=== PATIENT | female | born 1985 | race Caucasian/White ===

== ENCOUNTER 2017-08-19 20:05 | Emergency (ER) | payer BC ==
[2017-08-19 21:29] VITALS: BP 134/92
--- NOTE | 2017-08-19 21:32 | UC ---
Neck Pain HPI - HPI Summary HPI Summary: 31 y/o female presents to the urgent care c/o neck pain for the past 10 days. Pain is spasmodic, radiating to the LF shoulder and left arm. Pains is 8/10 w/ some tingling and numbness in the left arm at times. She has been taking ibuprofen, using ice, heat and muscle creams to alleviate symptoms. She doesn' t recall any injury.Pt denies fever, SOB, chest pain, BURGOS, abdominal pain, N/V/D - History of Current Complaint Chief Complaint: UCBackPain Stated Complaint: NECK PAIN Hx Obtained From: Patient Hx Last Menstrual Period: due this weekend, on control ?: No Onset/Duration Of Injury/Symptoms: Days - 10 days Timing: Constant Onset/Duration: Gradual Onset, Lasting Days, Still Present, Worse Since - yesterday Severity: Severe Pain Intensity: 8 Pain Scale Used: 0-10 Numeric Location: Discrete At: - left side of neck Character: Stiff, Spasmotic Aggravating Factors: Movement Alleviating Factors: Heat, OTC Meds Associated Signs & Symptoms: Positive: Nuchal Rigity. Negative: Swelling, Redness, Fever, Headache - Risk Factors Meningitis Risk Factors: Negative - Allergies/Home Medications Allergies/Adverse Reactions: Allergies Allergy/AdvReac Type Severity Reaction Status Date / Time Cefaclor [From [facility]] Allergy Hives Verified 08/19/17 21:29 Home Medications: Home Medications ALPRAZolam TAB* [Xanax TAB*] 0.25 mg PO Q6H PRN 08/19/17 [History Confirmed 06/26] Control 1 tab PO DAILY 08/19/17 [History Confirmed 08/19/17] Propranolol TAB* [Inderal TAB*] 10 mg PO DAILY 08/19/17 [History Confirmed 08/19] Venlafaxine EXT RELEASE CAP* [Effexor Xr CAP*] 37.5 - 75 mg PO DAILY 08/19/17 [ History Confirmed 08/19/17] PMH/Surg Hx/FS Hx/Imm Hx Previously Healthy: Yes Neurological History: Migraine Psychological History: Anxiety - Surgical History Surgical History: Yes Surgery Procedure, Year, and Place: breast reduction 2007 - Family History Known Family History: Positive: Diabetes - Social History Occupation: Employed Full-time Lives: With Family Alcohol Use: None Substance Use Type: None, Synthetic Drugs Smoking Status (MU): Heavy Every Day Tobacco Smoker Review Of Systems Constitutional: Positive: Negative Skin: Positive: Negative Eyes: Positive: Negative ENT: Positive: Negative Respiratory: Positive: Negative Cardiovascular: Positive: Negative Gastrointestinal: Positive: Negative Genitourinary: Positive: Negative Musculoskeletal: Positive: Other: - left side neck pain Neurological: Positive: Numbness - left side arm Psychological: Positive: Negative All Other Systems Reviewed And Are Negative: Yes Physical Exam Triage Information Reviewed: Yes Vital Signs: Initial Vital Signs Temp 97.9 F 08/19/17 21:23 Pulse 77 08/19/17 21:23 Resp 14 08/19/17 21:23 BP 134/92 08/19/17 21:23 - Additional Comments VITAL SIGNS: Reviewed. GENERAL: Patient is a well developed and nourished who is sitting comfortable in the examining table. Patient is not in any acute respiratory distress. HEAD AND FACE: No signs of trauma. No ecchymosis, hematomas or skull depressions. No sinus tenderness. edematous erythematous nasal mucosa with yellowish discharge, EYES: PERRLA, EOMI x 2, No injected conjunctiva, clear watery eyes, no nystagmus. No photophobia. EARS: Hearing grossly intact. Ear canals and tympanic membranes are within normal limits. MOUTH: Positive pharynx with erythema, no exudates,no palatal petechiae. no B/ L tonsillar enlargement Uvula in midline. NECK: no surface trauma, open wounds, soft tissue, or muscle tenderness; trachea midline, NT over larynx. No subcutaneous emphysema or crepitus. No bony tenderness, step-off or deformity to firm palpation at posterior midline. FROM limited due to pain; left side of neck with tenderness and muscle spasm. Decrease ROM of the left shoulder due to pain. No meningeal signs, no Kernig's or brudzinskis signs. CHEST: Symmetric, no tenderness at palpation LUNGS: Clear to auscultation bilaterally. No wheezing or crackles. CVS: Regular rate and rhythm, S1 and S2 present, no murmurs or gallops appreciated. ABDOMEN: Soft, non-tender. No signs of distention. No rebound no guarding, and no masses palpated. Bowel sounds are normal. EXTREMITIES: FROM in all major joints, no edema, no cyanosis or clubbing. NEURO: Alert and oriented x 3. No acute neurological deficits. Speech is normal and follows commands. SKIN: Dry and warm Neck Pain Course/Dx - Course Course Of Treatment: 31 y/o female presents to the urgent care c/o neck pain for the past 10 days. Pain is spasmodic, radiating to the LF shoulder and left arm. Pains is 8/10 w/ some tingling and numbness in the left arm at times. She has been taking ibuprofen, using ice, heat and muscle creams to alleviate symptoms. She doesn't recall any injury.Pt denies fever, SOB, chest pain, BURGOS, abdominal pain, N/V/D. Hx obtained. Left side of neck with muscle spasm on examination. Pt given Toradol IM inj and Prednisone PO to alleviate symptoms. Pt tolerated well medications and pain decrease. Pt Rx Naproxen PO, Prednisone taper dose PO, Robaxin PO abd advised if not improvment of symptoms to f/u with Orthopedic Dr Henao in 1 weak for further management. Pt's BP is elevated today advised to decrease salt in diet, monitor BP and f/u with PCP for further management. Pt understood and agreed w/ plan of care. - Differential Dx/Diagnosis Differential Dx/HQI/PQRI: Cervical Fracture, Sprain, Strain, Torticollis Provider Diagnoses: 1- Spasmodic Torticollis. 2-Acute neck pain Discharge - Discharge Plan Condition: Stable Disposition: HOME Prescriptions: Methocarbamol TAB* [Robaxin 500 MG TAB*] 1,000 mg PO Q6H PRN #12 tab PRN Reason: Spasms - Neck Naproxen [Naproxen 500 mg] 500 mg PO Q8H PRN #30 tab PRN Reason: Pain predniSONE TAB* [Deltasone TAB*] 20 mg PO DAILY #8 tab Patient Education Materials: Spasmodic Torticollis (ED), Low Sodium Diet (ED), Acute Neck Pain (ED) Referrals: Luis Victor MD [Primary Care Provider] - 3 Days Luis Henao MD [Medical Doctor] - 3 Days Additional Instructions: 1-Please take Naproxen PO after meals as directed to alleviate pain and swelling. 2- Take Prednisone PO as directed to alleviate symptoms as directed 3- Take Robaxin PO as directed to alleviate muscle spasm 4- Please f/u with Orthopedic DR Henao in 3 days if not improvement improvement of symptoms for further evaluation and treatment. 5-Your BP is elevated today. please decrease salt in your diet, monitor BP and if it continues to be elevated please f/u with your PCP for further management
[2017-08-19] MEDS ORDERED: Ketorolac INJ* 60 MG/2 ML VIAL IM ONE (21:43)
[2017-08-19] MEDS ORDERED: predniSONE TAB* 20 MG PO ONE (21:44)
== END 2017-08-19 22:24 | disposition home or self-care (01) ==
LOC: UCCORT 20:05
DX: G24.3 Spasmodic torticollis (principal); M54.2 Cervicalgia; G43.909 Migraine, unspecified, not intractable, without status migrainosus; F41.9 Anxiety disorder, unspecified; Z88.1 Allergy status to other antibiotic agents; F17.210 Nicotine dependence, cigarettes, uncomplicated
CPT/HCPCS: 96372; 99202; G0463; J1885; J7512

== ENCOUNTER 2017-10-21 13:43 | Emergency (ER) | payer BC ==
--- NOTE | 2017-10-21 14:34 | UC ---
UC Dental HPI - HPI Summary HPI Summary: dental pain x 3 days left lower back , tooth was broken few months ago , no it is becoming painful no fever - History of Current Complaint Chief Complaint: UCDentalProblem Stated Complaint: DENTAL PAIN Time Seen by Provider: 10/21/17 14:12 Hx Obtained From: Patient Hx Last Menstrual Period: 10/18/17 Onset/Duration: Gradual Onset, Lasting Days - 3, Still Present Severity: Severe Pain Intensity: 6 Pain Scale Used: 0-10 Numeric Aggravating Factor(s): Heat, Cold, Chewing Alleviating Factor(s): Nothing Dental: 1 - pain - Allergies/Home Medications Allergies/Adverse Reactions: Allergies Allergy/AdvReac Type Severity Reaction Status Date / Time cefaclor [From [facility]] Allergy Unknown Hives Verified 10/21/17 14:05 Home Medications: Home Medications Ibuprofen TAB* [Advil TAB*] 600 mg PO Q6H PRN 10/21/17 [History Confirmed ] Norgestimate-Ethinyl Estradiol [Ortho-Cyclen 28 Tablet] 1 each PO DAILY [History Confirmed 10/21/17] PMH/Surg Hx/FS Hx/Imm Hx Previously Healthy: Yes - Surgical History Surgical History: Yes Surgery Procedure, Year, and Place: breast reduction 2007 - Family History Known Family History: Positive: Diabetes - Social History Alcohol Use: Rare Substance Use Type: Prescribed Smoking Status (MU): Heavy Every Day Tobacco Smoker Amount Used/How Often: 1/2 PPD Household Exposure Type: Cigarettes Review of Systems Constitutional: Negative Skin: Negative Eyes: Negative ENT: Dental Pain Respiratory: Negative Cardiovascular: Negative Is Patient Immunocompromised?: No All Other Systems Reviewed And Are Negative: Yes Physical Exam Triage Information Reviewed: Yes Appearance: Well-Appearing, No Pain Distress, Well-Nourished Vital Signs: Initial Vital Signs Temp 96.9 F 10/21/17 14:07 Pulse 103 10/21/17 14:07 Resp 18 10/21/17 14:07 BP 137/78 10/21/17 14:07 Pulse Ox 99 10/21/17 14:07 Vital Signs Reviewed: Yes Eyes: Positive: Conjunctiva Clear ENT: Positive: Normal ENT inspection, Hearing grossly normal, Pharynx normal Dental: Positive: Gross Decay/Caries @ - #19. Negative: Abscess @ Neck: Positive: Supple, Nontender, No Lymphadenopathy Respiratory: Positive: Chest non-tender, Lungs clear, Normal breath sounds Cardiovascular: Positive: RRR, No Murmur, Pulses Normal Skin Exam: Normal Dental Complaint Course/Dx - Differential Dx/Diagnosis Provider Diagnoses: dental pain Discharge - Discharge Plan Condition: Stable Disposition: HOME Prescriptions: Acetaminop/Codeine 30 MG TAB* [Tylenol/Codeine 30 MG TAB*] 1 - 2 tab PO Q6H PRN #20 tab MDD 8 PRN Reason: Pain Clindamycin Cap(NF) [Clindamycin Cap 300 mg Cap(NF)] 300 mg PO TID #30 cap Patient Education Materials: Toothache (ED) Referrals: Luis Victor MD [Primary Care Provider] - Additional Instructions: follow up with a dentist reny
[2017-10-21 15:07] VITALS: BP 137/78
== END 2017-10-21 14:31 | disposition home or self-care (01) ==
LOC: UCCORT 13:43
DX: S02.5XXA Fracture of tooth (traumatic), initial encounter for closed fracture (principal); X58.XXXA Exposure to other specified factors, initial encounter; Y93.9 Activity, unspecified; Y92.9 Unspecified place or not applicable
CPT/HCPCS: 99212; G0463

== ENCOUNTER 2019-06-10 08:10 | Inpatient (IN) | payer BC ==
--- NOTE | 2019-06-10 08:52 | HP ---
General Information - Reason for Visit 33yo, @37+4, here for an IOL for GHTN - General Information Maternal Age: 33 Grav: 1 Para: 0 SAB: 0 IEA: 0 Estimated Due Date: 06/27/19 Determined By: LMP Gestational Age in Weeks/Days: 37+4 Maternal Blood Type and Rh: AB Positive - Results this Serology/RPR Result: Non-Reactive Rubella Result: Immune HBsAg Result: Negative HIV Result: Negative GBS Culture Result: Negative Past Medical History Past Medical History Comment: Depression/anxiety migraine back pain tachycardia Past Surgical History Comment: breast reduction colposcopy Family History Comment: Father: depression/anxiety Mother: diabetes Brother 1: [employer] PGM: d/t lupus[place] PGF: [place] MGM[place] MGF: prostate cancer[place] - Antepartal Records Antepartal Records: Reviewed, Complicated by: - anxiety, tachycard Review of Systems CV Complaint: No Respiratory: Shortness of Breath: No Gastrointestinal: No Nausea/Vomiting, Normal Bowel Movement Genitourinary: No Dysuria, No Bleeding, No Leaking Fluid Musculoskeletal: No Complaint, No Epigastric Pain Neurological: No Headache, No Visual Changes Movement: Normal Exam Allergies/Adverse Reactions: Allergies cefaclor [From Ceclor] Allergy (Unknown, Verified 06/10/19 08:35) Hives temp 97.4, HR 82, RR 18, BP 130/79, O2 100% - Measurements Height: 5 ft 3 in Weight: 245 lb Weight in lbs: [id number] Body Mass Index (BMI): 43.4 Pre- Weight: 205 lb Weight Gained This : 40 lbs and 0 ozs - Exam Breast: Breast Exam Deferred CVA: No CVA Tenderness Extremities: No Edema Heart: Normal Rhythm/Heart Sounds HEENT: No Significant Findings Lungs: Clear Bilaterally Rectal: Rectal Exam Deferred Thyroid: No Thyromegaly - Abdominal Exam Abdomen Exam: Non-Tender, Fundal Height Consistent with Dates - Ultrasound/Biophysical Profile Ultrasound Status: Not Done Targeted Exam Findings Estimated Weight: 8lb Cervical Exam: Fingertip - check by Nikki Saleh CNM on 06/09 in office Effacement: Thick Station: -2 Presenting Part: Vertex Membrane Status: Intact EFM Findings - External Monitor Findings Baseline Heart Rate: 140 External Monitor Findings: Accelerations Present, No Pattern of Variable or Late Decelerations, Variability Moderate External Monitor Findings Comment: No evidence of metabolic acidemia Contractions: None Assessment/Plan - Assessment 33yo, IUP@37+4, here for an IOL of GHTN complicated by GHTN, anxiety, tachycardia Last sono on 06/09, AC>97% No evidence of metabolic acidemia Not in active labor Caro score = unfavorable cervix - Obstetrical Risk Factors Obstetrical Risk Factors: Gestational Hypertension - Plan Plan: Admit - Anticipate Vaginal Delivery - PARQ discussion about ripening methods. Will start misoprostol, 50mcg, PO. Pt in agreement with plan.
[2019-06-10] MEDS ORDERED: Misoprostol TAB* 100 MCG PO ONE (10:00)
[2019-06-10] MEDS ORDERED: Buffered Lidocaine 1% SYRIN* 1 ML/SYRINGE INTRADERM ONE (10:09)
[2019-06-10] MEDS ORDERED: Lactated Ringers 1000 ML Bag* 1,000 ML IV ONE (10:09)
[2019-06-10] MEDS ORDERED: ALPRAZolam TAB* 0.25 MG PO PRN (10:11)
[2019-06-10] MEDS ORDERED: Propranolol TAB* 20 MG PO SCH (11:00)
[2019-06-10] MEDS ORDERED: Propranolol TAB* 10 MG PO SCH (11:00)
[2019-06-10] MEDS ORDERED: Misoprostol TAB* 100 MCG PO SCH (13:00)
[2019-06-10 14:39] LABS: Urine Benzodiazepine Screen Presumptive Positive (None Detect); Urine Opiates Screen None Detected (None Detect)
[2019-06-10] MEDS ORDERED: Oxytocin in LR* 20 UNITS/1,000 ML BAG IVPB SCH (17:00)
--- NOTE | 2019-06-10 17:02 | PN ---
Progress Note - Progress Note Date of Service: 06/10/19 Note: Was notified by RN that pt deirdre every 2 minutes Per RN, pt reports feeling "crampy, like menstrual cramps," but comfortable Per RN, good resting tone Category I tracing Hold on next dose of misoprostol
--- NOTE | 2019-06-10 17:11 | PN ---
Progress Note - Progress Note Date of Service: 06/10/19 Note: S: Pt resting in bed. Family at bedside. Reports menstrual cramps. Good FM, denies lof/vb O: BP: 140/80 FHR: 125, moderate variability, +accels, no decels Contractions: q2 minutes, palpate mild-moderate A: IUP@37+4, not in active labor Will repeat PEC labs, normal in office FHR: change in baseline, no evidence of metabolic acidemia Contractions: regular contractions, good resting tone P: Start IV, draw labs Given contraction pattern, PARQ discussion about starting Pitocin. Anticipate progression to active labor
[2019-06-10] MEDS: Lactated Ringers 1000 ML Bag* 1,000 ML IV SCH (17:20)
[2019-06-10 17:32] LABS: ABS Basophils 0.1 10^3/ul (0-0.2); ABS Eosinophils 0.1 10^3/ul (0-0.6); ABS Lymphocytes 2.4 10^3/ul (1.0-4.8); ABS Monocytes 0.9 10^3/ul (0-0.8); ABS Neutrophils 9.2 10^3/ul (1.5-7.7); Eosinophil % 0.9 %; Hematocrit 37 % (35-47); Hemoglobin 11.9 g/dL (12.0-16.0); Lymphocyte % 19.1 %; Mean Corpuscular HGB Conc 33 g/dL (31-36); Mean Corpuscular Hemoglobin 28 pg (27-31); Mean Corpuscular Volume 86 fL (80-97); Mean Platelet Volume 9.7 fL (7.4-10.4); Nucleated Red Blood Cells % 0.1; Platelet Count 235 10^3/uL (150-450); Red Blood Count 4.25 10^6 /uL (3.70-4.87); Red Cell Distribution Width 14 % (10-15); White Blood Count 12.8 10^3/uL (3.5-10.8)
[2019-06-10 17:46] LABS: Albumin 3.5 g/dL (3.2-5.2); Albumin/Globulin Ratio 1.2 (1-3); BUN/Creatinine Ratio 18.8 (8-20); Calcium 9.1 mg/dL (8.6-10.3); EGFR Non-African American 108.2 (>60); Globulin 2.9 g/dL (2-4); Potassium 4.1 mmol/L (3.5-5.0); Total Bilirubin 0.3 mg/dL (0.2-1.0); Total Protein 6.4 g/dL (6.4-8.9)
[2019-06-10] MEDS: CMC:Venlafaxine TAB (NF) 25 MG TAB PO SCH (20:17)
[2019-06-10] MEDS: Propranolol TAB* 20 MG PO SCH (20:18)
[2019-06-10] MEDS ORDERED: diPHENhydraMINE PO* 50 MG PO PRN (21:38)
[2019-06-10] MEDS ORDERED: Lidocaine 2% JELLY* 6 ML JELLY TOPICAL ONE (21:39)
--- NOTE | 2019-06-10 21:50 | PN ---
Progress Note - Progress Note Date of Service: 06/10/19 Note: S: Pt resting in bed. Family at bedside. Reports menstrual cramps. Good FM, denies lof/vb. Denies BURGOS, vision changes, epigastric pain, edema O: BP: 152/75, temp 98.7, RR 18, HR 91 FHR: 140, moderate variability, +accels, no decels Contractions: q2 minutes, palpate mild-moderate Pit was at 6mU, now discontinued VE: 1/60%/-1, vtx A: IUP@37+4, not in active labor IOL for GHTN Elevated BP, normal PEC labs, pt asymptomatic FHR: back to baseline, no evidence of acidemia Contractions: regular contractions, good resting tone P: PARQ discussion about cervical ripening overnight. Given regular contractions and unfavorable cervix, plan for Cook catheter Pt and in agreement with plan Monitor BPs closely PO benadryl to help pt sleep Anticipate progression to active labor
--- NOTE | 2019-06-10 23:34 | PN ---
Progress Note - Progress Note Date of Service: 06/10/19 Note: Pt in lithotomy position Cook catheter threaded through external and internal os Uterine balloon inflated to 80mL, vaginal balloon inflated to 80mL Pt tolerated procedure well Plan to remove in 12 hours, or sooner if labor ensues
[2019-06-11] MEDS: CMC:Venlafaxine TAB (NF) 25 MG TAB PO SCH ×2 (08:18→20:03)
[2019-06-11] MEDS: Propranolol TAB* 20 MG PO SCH ×2 (08:18→20:04)
[2019-06-11] MEDS ORDERED: Venlafaxine EXT RELEASE CAP* 37.5 MG PO SCH (09:00)
--- NOTE | 2019-06-11 10:43 | PN ---
Progress Note - Progress Note Date of Service: 06/11/19 Note: S: Pt resting in bed. Reports menstrual cramps and back pain. Good FM, denies lof/ vb. Denies BURGOS, vision changes, epigastric pain, edema O: BP: 133/77, temp 98.7 FHR: 135, moderate variability, +accels, no decels Contractions: q2-5 minutes, palpate mild-moderate Pit is at 4mU VE: 2.5/60%/-1, vtx; Cook catheter removed A: IUP@37+5, not in active labor IOL for GHTN BPs stable, pt asymptomatic FHR: no evidence of acidemia Contractions: regular contractions, good resting tone P: PARQ discussion about restarting Pitocin for IOL. Pt in agreement with plan IV pain medication prn, epidural in active labor Anticipate progression to active labor
[2019-06-11] MEDS: Lactated Ringers 1000 ML Bag* 1,000 ML IV SCH ×2 (11:18→14:33)
--- NOTE | 2019-06-11 13:23 | PN ---
Progress Note - Progress Note Date of Service: 06/11/19 Note: S: Pt resting in bed. Reports menstrual cramps. Back pain improved. Good FM, denies lof/vb. Denies BURGOS, vision changes, epigastric pain, edema O: FHR: 135, moderate variability, +accels, no decels Contractions: q5 minutes, palpate mild-moderate Pit is at 10mU VE: deferred A: IUP@37+5, not in active labor IOL for GHTN BPs stable, pt asymptomatic FHR: no evidence of acidemia Contractions: regular contractions, good resting tone P: Continue to titrate Pitocin as tolerated IV pain medication prn, epidural in active labor Anticipate progression to active labor
--- NOTE | 2019-06-11 16:12 | PN ---
Progress Note - Progress Note Date of Service: 06/11/19 Note: S: Called by RN for possible SROM. Pt reported 2 "gushes. "Small amount of pink- tinged fluid on pad. O: FHR: 135, moderate variability, +accels, no decels Contractions: q5 minutes, palpate mild-moderate Pit is at 18mU VE: deferred A: IUP@37+5, not in active labor IOL for GHTN Questionable SROM BPs stable, pt asymptomatic FHR: no evidence of acidemia Contractions: regular contractions, good resting tone P: Continue to titrate Pitocin as tolerated IV pain medication prn, epidural in active labor Anticipate progression to active labor
--- NOTE | 2019-06-11 17:55 | PN ---
Progress Note - Progress Note Date of Service: 06/11/19 Note: S: Called by RN for tachysytole. Pt up OOB, using the bathroom O: BP 137/72, FHR: 135, moderate variability, +accels, no decels Contractions: q1.5 minutes, palpate mild-moderate Pit is halved, now at 7mU VE: 3.5/80/-1, bulging bag, AROM A: IUP@37+5, not in active labor IOL for GHTN BPs stable, pt asymptomatic FHR: no evidence of acidemia Contractions: q1.5 Making cervical change, pt tolerated AROM - clear fluid P: Monitor contractions and pitocin rate closely IV pain medication prn, epidural in active labor Anticipate progression to active labor
[2019-06-11] MEDS ORDERED: Promethazine INJ(RESTRICTED)* 25 MG/ML 1 ML VIAL IV PRN (19:58)
[2019-06-11] MEDS ORDERED: Nalbuphine* 10 MG/ML 1 ML VIAL IV PRN (19:59)
--- NOTE | 2019-06-11 20:07 | PN ---
Progress Note - Progress Note Date of Service: 06/11/19 Note: Called to bedside by RN Pt uncomfortable, asking for pain medication VE: /1, clear fluid Discussed Nubain/phenergan vs. epidural. Opts for IV pain meds now. Called pharmacist to review possible medication interactions. Okay per pharmacist for Nubain and phenergan.
--- NOTE | 2019-06-11 22:24 | PN ---
Progress Note - Progress Note Date of Service: 06/11/19 Note: Contractions difficult to trace VE: /1 Placed IUPC with some difficulty due to maternal habitus Will titrate Pitocin based on contraction pattern and tolerance
[2019-06-11] MEDS ORDERED: OBEPIDURAL* 250 ML EPIDURAL ONE (23:58)
--- NOTE | 2019-06-12 00:09 | PN ---
Progress Note - Progress Note Date of Service: 06/12/19 Note: Notified by RN that pt would like an epidural VE deferred Anesthesia aware
[2019-06-12] MEDS ORDERED: Phenylephrine 40 MCG/ML SYRINGE IV PUSH PRN ×2 (00:42)
[2019-06-12] MEDS ORDERED: Lactated Ringers 1000 ML Bag* 1,000 ML IV ONE (00:42)
[2019-06-12] MEDS ORDERED: Sodium Citrate/Citric Acid* 15 ML UDC PO PRN (00:42)
[2019-06-12] MEDS ORDERED: OBEPIDURAL* 250 ML EPIDURAL SCH (01:00)
[2019-06-12] MEDS ORDERED: Lactated Ringers 1000 ML Bag* 1,000 ML IV SCH ×2 (01:00→08:00)
--- NOTE | 2019-06-12 04:36 | PN ---
Progress Note - Progress Note Date of Service: 06/12/19 Note: Pt sleeping soundly with CEI infusing. Category I tracing Per RN, hypotension following epidural, BPs now stable MVUs <100, plan to continue to titrate Pitocin, now at 10mU VE deferred Anticipate progression to active labor
--- NOTE | 2019-06-12 06:14 | PN ---
Progress Note - Progress Note Date of Service: 06/12/19 Note: Called to bedside by RN for episode of persistent bradycardia Pitocin was discontinued, bolus of LR given, pt on left side VE: 4/100/-1, FSE placed and IUPC flushed FHR recovered to 140s with moderate variability FHR then fell back into 90s, low 100s Pt placed in hands and knees Dr. Bobby MD notified and en route to [facility] Given category III tracing remote from delivery, the decision was made to proceed with a primary Anesthesia and neonatology notified
[2019-06-12] MEDS ORDERED: ceFOXitin 2 GM IVPREMIX* 2 GM/50 ML BAG ONE (06:48)
[2019-06-12] MEDS ORDERED: Propofol* 10 MG/ML 20 ML BTL ONE (06:59)
[2019-06-12] MEDS ORDERED: Lidocaine 2% PF* 10 ML AMP ONE (06:59)
[2019-06-12] MEDS ORDERED: Succinylcholine* 20 MG/ML 10 ML VIAL ONE (06:59)
[2019-06-12] MEDS ORDERED: OXYTOCIN* 10 UNITS/ML 1 ML VIAL ONE ×2 (07:04→07:16)
[2019-06-12] MEDS ORDERED: Carboprost Tromethamine* 250 MCG INJ ONE (07:11)
[2019-06-12] MEDS ORDERED: Phenylephrine 40 MCG/ML SYRINGE ONE ×2 (07:16→07:23)
[2019-06-12] MEDS ORDERED: Metoclopramide IV* 5 MG/ML 2 ML VIAL ONE (07:20)
[2019-06-12] MEDS ORDERED: Ondansetron INJ* 2 MG/ML VIAL ONE (07:20)
[2019-06-12] MEDS ORDERED: Dexamethasone IV* 4 MG/ML 1 ML (4 MG) ONE (07:23)
[2019-06-12] MEDS ORDERED: Morphine PF AMP (0.5MG/ML)* 5 MG/10 ML AMP ONE (07:32)
[2019-06-12] MEDS ORDERED: Ondansetron INJ* 2 MG/ML VIAL IV PRN (07:39)
[2019-06-12] MEDS ORDERED: Metoclopramide IV* 5 MG/ML 2 ML VIAL IV PRN (07:39)
[2019-06-12] MEDS ORDERED: Naloxone* 2 MG in NS 0.9% 250 ML* 250 ML IV PRN (07:39)
[2019-06-12] MEDS ORDERED: oxyCODONE/Acetamin 5/325 MG* TAB PO PRN ×2 (07:39→23:39)
[2019-06-12] MEDS ORDERED: Naloxone* 0.4 MG/ML 1 ML VIAL IV PRN ×2 (07:39→08:02)
[2019-06-12] MEDS ORDERED: Zolpidem TAB* 5 MG PO PRN (07:56)
[2019-06-12] MEDS ORDERED: Glycerin ADULT SUPP PR PRN (07:56)
[2019-06-12] MEDS ORDERED: Witch Hazel PAD* JAR TOPICAL PRN (07:56)
[2019-06-12] MEDS ORDERED: Dibucaine 1% 28.35 GM TUBE PR PRN (07:56)
[2019-06-12] MEDS ORDERED: fentaNYL* 50 MCG/ML 2 ML VIAL (100 MCG VIAL) IV PRN (08:02)
[2019-06-12] MEDS: Ketorolac INJ* 30 MG/ML 1 ML VIAL IV PRN ×3 (08:15→22:23)
[2019-06-12] MEDS: Propranolol TAB* 20 MG PO SCH ×2 (09:00→20:31)
[2019-06-12] MEDS: Docusate CAP* 100 MG PO SCH ×3 (11:35→20:31)
[2019-06-12] MEDS: Simethicone TAB* 80 MG TAB.CHEW PO SCH ×4 (11:35→20:31)
[2019-06-12] MEDS: CMC:Venlafaxine TAB (NF) 25 MG TAB PO SCH ×2 (11:36→20:24)
[2019-06-12] MEDS: oxyCODONE TAB* 5 MG TAB PO PRN ×2 (11:49→23:43)
[2019-06-12] MEDS: Acetaminophen TAB* 325 MG PO PRN ×2 (12:46→17:48)
[2019-06-12] MEDS ORDERED: Lidocaine 1% w EPI 1:200,000* SDV 30 ML VIAL ONE (18:59)
[2019-06-12] MEDS ORDERED: Lidocaine 1% INJ* 10 MG/ML 30 ML SDV ONE (18:59)
[2019-06-12] MEDS ORDERED: Acetaminophen TAB* 325 MG PO PRN (23:39)
[2019-06-12] MEDS ORDERED: oxyCODONE TAB* 5 MG TAB ONE (23:41)
[2019-06-12] MEDS ORDERED: oxyCODONE TAB* 5 MG TAB PO ONE (23:45)
[2019-06-13] MEDS: oxyCODONE/Acetamin 5/325 MG* TAB PO PRN ×4 (03:55→21:43)
[2019-06-13] MEDS: Ketorolac INJ* 30 MG/ML 1 ML VIAL IV PRN ×2 (04:02→07:30)
[2019-06-13 06:46] LABS: ABS Eosinophils 0.1 10^3/ul (0-0.6); ABS Lymphocytes 1.9 10^3/ul (1.0-4.8); ABS Monocytes 1.3 10^3/ul (0-0.8); Eosinophil % 0.6 %; Hematocrit 24 % (35-47); Lymphocyte % 11.8 %; Mean Corpuscular HGB Conc 33 g/dL (31-36); Mean Corpuscular Hemoglobin 29 pg (27-31); Mean Corpuscular Volume 86 fL (80-97); Mean Platelet Volume 9.4 fL (7.4-10.4); Platelet Count 191 10^3/uL (150-450); Red Cell Distribution Width 14 % (10-15); White Blood Count 16.3 10^3/uL (3.5-10.8)
[2019-06-13] MEDS: CMC:Venlafaxine TAB (NF) 25 MG TAB PO SCH ×2 (08:00→21:42)
[2019-06-13] MEDS: Ferrous Gluconate TAB* 324 MG TAB PO SCH ×2 (08:00→21:42)
[2019-06-13] MEDS: Propranolol TAB* 20 MG PO SCH ×2 (08:00→21:43)
[2019-06-13] MEDS: Simethicone TAB* 80 MG TAB.CHEW PO SCH ×4 (08:00→21:45)
[2019-06-13] MEDS: Docusate CAP* 100 MG PO SCH ×3 (08:10→21:42)
[2019-06-13] MEDS: Ibuprofen TAB* 600 MG PO PRN ×2 (13:34→19:45)
--- NOTE | 2019-06-13 17:29 | OP ---
OPERATIVE REPORT: DATE OF OPERATION: 06/12/19 DATE OF : 89 SURGEON: Rad Rosales MD ENVIRONMENTAL JOURNALIST: Celia Saleh CNM ANESTHESIA: Epidural. PRE-OP DIAGNOSES: Persistent heart bradycardia, category 3 tracing. POST-OP DIAGNOSES: Persistent heart bradycardia, category 3 tracing. OPERATIVE PROCEDURE: Primary stat section, vacuum-assisted delivery of the head. ESTIMATED BLOOD LOSS: 700 cc. SPECIMENS SENT TO PATHOLOGY: Cord blood and placenta. FLUIDS: She received 2 L of IV crystalloid fluid. URINE OUTPUT: Clear. FINDINGS: Delivery of a male infant with a body cord and arm cord wrapped around once over clear flu id with a weight of 3198 g with Apgars of 7 and 8. The placenta was grossly intact and sent to Patho logy. The uterus, adnexa, bowel, and bladder were within normal limits. DESCRIPTION OF PROCEDURE: The patient was taken to the operating room where she was identified. She was placed on the operating table where an epidural anesthetic was obtained without difficulty. She was placed in the supine position with a leftward tilt, prepped and draped in normal sterile fashion . A Pfannenstiel skin incision was made with a knife and carried through to underlying layer of fasc ia. The fascia was then nicked in the midline, extended laterally with curved Gates scissors. It was then grasped superiorly and inferiorly with Trudy clamps and dissected off sharply from the rectus m uscle. The rectus muscle was in the midline bluntly. The peritoneum was identified, grasp ed with pickups, entered sharply with Metzenbaum scissors, and extended superiorly and inferiorly sha rply. A bladder blade was inserted into the patient's abdomen. A bladder flap was created over which the bladder blade was then reinserted. A low transverse uterine incision was made with a knife, ext ended laterally with bandage scissors. The 's head was then grasped and delivered with vacuum assistance atraumatically. An arm and body cord x1 was reduced and the rest of the infant's body was then delivered. The cord was clamped and cut, and the infant was handed off to awaiting appraiser personal property . Cord bloods were obtained. The placenta was removed manually. The uterus was then exteriorized, cleared of all clot and debris using moist laparotomy sponges. The uterine incision was then closed using 0 Polysorb suture in a running locked fashion with a second imbricating layer of 0 Polysorb sut ure with good hemostasis noted. The uterus was then returned to the patient's abdomen. The gutters were cleared of all clot and debris using irrigation and moist laparotomy sponges. Irrigation fluid was suctioned. Sponges were removed from the patient's abdomen. The peritoneum was then closed usin g 3-0 Polysorb suture in a running fashion. The fascia was closed using 0 Polysorb suture in a runni ng fashion. The Nick's fascia was using 3-0 Polysorb sutures interrupted and the skin was closed w ith melissa. The patient tolerated the procedure well. Sponge, lap, and needle counts were correct x2. She was then transferred to the recovery room area in stable condition. [id number]/[facility] #: [id number]
[2019-06-14] MEDS: Ibuprofen TAB* 600 MG PO PRN ×3 (01:35→18:28)
[2019-06-14] MEDS: oxyCODONE/Acetamin 5/325 MG* TAB PO PRN ×5 (02:05→19:58)
[2019-06-14] MEDS: Ferrous Gluconate TAB* 324 MG TAB PO SCH ×2 (08:51→19:57)
[2019-06-14] MEDS: Propranolol TAB* 20 MG PO SCH ×2 (08:51→20:00)
[2019-06-14] MEDS: CMC:Venlafaxine TAB (NF) 25 MG TAB PO SCH ×2 (08:52→20:00)
[2019-06-14] MEDS: Simethicone TAB* 80 MG TAB.CHEW PO SCH ×4 (08:54→19:57)
[2019-06-14] MEDS: Docusate CAP* 100 MG PO SCH ×3 (08:54→19:57)
[2019-06-15] MEDS: Ibuprofen TAB* 600 MG PO PRN ×3 (00:26→12:52)
[2019-06-15] MEDS: oxyCODONE/Acetamin 5/325 MG* TAB PO PRN ×4 (00:26→15:51)
[2019-06-15 07:36] VITALS: BP 129/64
[2019-06-15] MEDS: Ferrous Gluconate TAB* 324 MG TAB PO SCH (09:01)
[2019-06-15] MEDS: CMC:Venlafaxine TAB (NF) 25 MG TAB PO SCH (09:01)
[2019-06-15] MEDS: Propranolol TAB* 20 MG PO SCH (09:01)
[2019-06-15] MEDS: Simethicone TAB* 80 MG TAB.CHEW PO SCH ×2 (09:01→12:52)
[2019-06-15] MEDS: Docusate CAP* 100 MG PO SCH ×2 (09:02→15:51)
== END 2019-06-15 17:57 | disposition home or self-care (01) | DRG 540 ==
LOC: MCHOBOUT 08:10 → MCHOB 08:40
PROVIDERS: ADMIT Advanced Practice Midwife; ATTEND Obstetrics & Gynecology
PROC: 3E033VJ Introduction of Other Hormone into Peripheral Vein, Percutaneous Approach (ICD-10-PCS; 2019-06-12)
PROC: 10907ZC Drainage of Amniotic Fluid, Therapeutic from Products of Conception, Via Natural or Artificial Opening (ICD-10-PCS; 2019-06-12)
PROC: 10D00Z1 Extraction of Products of Conception, Low, Open Approach (ICD-10-PCS; principal; 2019-06-12 06:48)
DX: O13.4 Gestational [pregnancy-induced] hypertension without significant proteinuria, complicating childbirth (principal); O99.344 Other mental disorders complicating childbirth; F41.8 Other specified anxiety disorders; O76 Abnormality in fetal heart rate and rhythm complicating labor and delivery; O69.89X0 Labor and delivery complicated by other cord complications, not applicable or unspecified; O61.0 Failed medical induction of labor; O90.81 Anemia of the puerperium; D64.9 Anemia, unspecified; Z3A.37 37 weeks gestation of pregnancy; Z37.0 Single live birth
CPT/HCPCS: 36415; 59200; 80053; 80307; 85025; 86850; 86900; 86901; 88307; A9270-GY; J0330; J0694; J1100; J1885; J2001; J2300; J2405; J2550; J2590; J2704; J2765; S0191

== ENCOUNTER 2019-10-22 11:52 | Emergency (ER) | payer BC ==
--- OUTSIDE RECORDS SUMMARY | 2019-10-22 11:59 | XMS REPORT | Continuity of Care Document ---
:1985 External Reference #:[id number] Author Name Blanca Epstein M.D. (transmitted by agent of provider Hannah Ackerman) Address [address] [place] [address] Care Team Providers Name Role Phone Blanca Epstein MD - Internal Medicine Care Team Information Hand Trucker [phone] Problems Description No Information Available Social History Type Date Description Comments Sex Unknown Tobacco Use Start: Unknown Patient is a current smoker, smokes every day Tobacco Use Start: Unknown Light tobacco smoker (10 or fewer cigarettes/day) Allergies, Adverse Reactions, Alerts Active Allergies Reaction Severity Comments Date Cefaclor 05/04/2018 Medications Active Medications SIG Qnty Indications Ordering Provider Date Venlafaxine HCL 1 by mouth every 30tabs Blanca Epstein M.D. 09/13/2019 100mg day Tablets Vitamin D-3 1 by mouth every 90caps F53.0 Blanca Epstein M.D. 09/13/2019 25mcg (1000 day [address]) Capsules Vitamin And 1 by mouth daily 90tabs F53.0 Blanca Epstein M.D. 09/13 Mineral 28-0.8mg Tablets Work Note The above is I11.9 Blanca Epstein M.D. 06/01/2019 excused from work as of this date 06/01 Propranolol HCL Take 1 Tablet By 180tabs Blanca Epstein M.D. 06/06/2018 20mg Mouth Twice Tablets Daily Alprazolam 1 by mouth 2 60tabs Blanca Epstein M.D. 05/04/2018 0.25mg times a day as Tablets needed anxiety History Medications Azithromycin 2 by mouth 6tabs J06.9 Blanca Epstein, 08/14/2019 - 250mg today, 1 by Emmett 09/13/2019 Tablets mouth day 2 thru 5 Immunizations Description No Information Available Vital Signs Date Vital Result Comment 09/13/2019 10:50am BP Systolic 180 mmHg BP Diastolic 110 mmHg Heart Rate 87 /min Height 63 inches 5'3" Weight 221.00 lb BMI (Body Mass Index) 39.1 kg/m2 08/14/2019 11:46am BP Systolic 120 mmHg BP Diastolic 80 mmHg Results Description No Information Available Procedures Description No Information Available Medical Devices Description No Information Available Encounters Type Date Location Provider Dx Diagnosis Office Visit 09/13/2019 Main Office Blanca Epstein M.D. F41.1 Generalized anxiety 10:45a disorder F53.0 depression Office Visit 08/14/2019 11:30a Main Office Blanca Epstein F41.1 Generalized anxiety M.D. disorder I11.9 Hypertensive heart disease without heart failure J06.9 Acute upper respiratory infection, unspecified Office Visit 07/12/2019 10:45a Main Office Blanca Epstein I11.9 Hypertensive heart M.D. disease without heart failure F41.1 Generalized anxiety disorder Office Visit 06/01/2019 11:15a Main Office Blanca Epstein F41.1 Generalized anxiety M.D. disorder I11.9 Hypertensive heart disease without heart failure Office Visit 04/25/2019 3:15p Main Office Blanca Epstein F41.1 Generalized anxiety M.D. disorder Assessments Date Code Description Provider 09/13/2019 F41.1 Generalized anxiety disorder Blanca Epstein M.D. 09/13/2019 F53.0 depression Blanca Epstein M.D. 08/14/2019 F41.1 Generalized anxiety disorder Blanca Epstein M.D. 08/14/2019 I11.9 Hypertensive heart disease without heart failure Blanca Epstein M.D. 08/14/2019 J06.9 Acute upper respiratory infection, unspecified Blanca Epstein M.D. 07/12/2019 I11.9 Hypertensive heart disease without heart failure Blanca Epstein M.D. 07/12/2019 F41.1 Generalized anxiety disorder Blanca Epstein M.D. 06/01/2019 F41.1 Generalized anxiety disorder Blanca Epstein M.D. 06/01/2019 I11.9 Hypertensive heart disease without heart failure Blanca Epstein M.D. 04/25/2019 F41.1 Generalized anxiety disorder Blanca Epstein M.D. Plan of Treatment Future Appointment(s):09/27/2019 11:00 am - Blanca Epstein M.D. at Main Office Functional Status Description No Information Available Mental Status Description No Information Available Referrals Description No Information Available
--- OUTSIDE RECORDS SUMMARY | 2019-10-22 11:59 | XMS REPORT | Continuity of Care Document ---
:1985 External Reference #:[id number] Author Name Blanca Epstein M.D. (transmitted by agent of provider Jeane Pierre) Address [address] [place] [address] Care Team Providers Name Role Phone Blanca Epstein MD - Internal Medicine Care Team Information Rn Ortho [phone] Problems Description No Information Available Social History Type Date Description Comments Sex Unknown Tobacco Use Start: Unknown Patient is a current smoker, smokes every day Tobacco Use Start: Unknown Light tobacco smoker (10 or fewer cigarettes/day) Allergies, Adverse Reactions, Alerts Active Allergies Reaction Severity Comments Date Cefaclor 05/04/2018 Medications Active Medications SIG Qnty Indications Ordering Provider Date Venlafaxine HCL 1 by mouth two 180tabs Blanca Epstein M.D. 09/13/2019 100mg times a day Tablets Vitamin D-3 1 by mouth [...] Available Vital Signs Date Vital Result Comment 10/12/2019 10:19am BP Systolic 120 mmHg BP Diastolic 80 mmHg Body Temperature 98.8 F Height 63 inches 5'3" Weight 219.00 lb BMI (Body Mass Index) 38.8 kg/m2 09/27/2019 11:22am BP Systolic 156 mmHg BP Diastolic 100 mmHg Heart Rate 99 /min Height 63 inches 5'3" Weight 219.00 lb BMI (Body Mass Index) 38.8 kg/m2 Results Description No Information Available Procedures Description No Information Available Medical Devices Description No Information Available Encounters Type Date Location Provider Dx Diagnosis Office Visit 09/27/2019 Main Office Blanca Epstein M.D. F53.0 depression 11:00a Office Visit 09/13/2019 Main Office Blanca Epstein [...] M.D. disorder Assessments Date Code Description Provider 10/12/2019 F41.1 Generalized anxiety disorder Blanca Epstein M.D. 10/12/2019 K64.8 Other hemorrhoids Blanca Epstein M.D. 09/27/2019 F53.0 depression Blanca Epstein M.D. 09/13/2019 F41.1 Generalized anxiety disorder Blanca Epstein [...] Blanca Epstein M.D. Plan of Treatment Future Appointment(s):11/13/2019 10:45 am - Blanca Epstein M.D. at Main [id number] - Blanca Epstein M.D.F41.1 Generalized anxiety disorderComments:discussed using alprazolam when needed to control fkctpmjP12.8 Other hemorrhoidsComments: witch martin pads sitz baths if not better by December/January colorectal surgery referral Functional Status Description No Information Available Mental Status Description No Information Available Referrals Description No Information Available
--- OUTSIDE RECORDS SUMMARY | 2019-10-22 11:59 | XMS REPORT | Continuity of Care Document ---
:1985 External Reference #:[id number] Author Name Blanca Epstein M.D. (transmitted by agent of provider Christy Flores) Address [address] [place] [address] Care Team Providers Name Role Phone Blanca Epstein MD - Internal Medicine Care Team Information Mental Health Program Manager [phone] Problems Description No Information Available Social History Type Date Description Comments Sex Unknown Tobacco Use Start: Unknown Patient is a current smoker, smokes every day Tobacco Use Start: Unknown Light tobacco smoker (10 or fewer cigarettes/day) Allergies, Adverse Reactions, Alerts Active Allergies Reaction Severity Comments Date Cefaclor 05/04/2018 Medications Active Medications SIG Qnty Indications Ordering Provider Date Azithromycin 2 by mouth 6tabs J06.9 Blanca Epstein M.D. 08/14/2019 250mg today, 1 by Tablets mouth day 2 thru 5 Work Note The above is I11.9 Blanca Epstein M.D. 06/01/2019 excused from work as of this date 06/01 Propranolol HCL Take 1 Tablet By 180tabs Blanca Epstein M.D. 06/06/2018 20mg Mouth Twice Tablets Daily Alprazolam 1 by mouth 2 60tabs Blanca Epstein M.D. 05/04/2018 0.25mg times a day as Tablets needed anxiety Venlafaxine HCL Take 2 Tablets 120tabs Blanca Epstein M.D. 05/04/2018 37.5mg By Mouth In The Tablets Morning And 2 AT Bedtime History Medications Carafate take my mouth 4 420ml Blanca Epstein, 03/20/2019 - 1GM/10ML times daily. MMei 04/25/2019 Suspension Carafate take 15 ml by 420ml O21.0 Blanca Epstein, 03/20/2019 - 1GM/10ML mouth 4 times M.D. 04/25/2019 Suspension daily. Immunizations Description No Information Available Vital Signs Date Vital Result Comment 08/14/2019 11:46am BP Systolic 120 mmHg BP Diastolic 80 mmHg 08/14/2019 11:24am BP Systolic 156 mmHg BP Diastolic 90 mmHg Heart Rate 83 /min Respiratory Rate 16 /min Height 63 inches 5'3" Weight 224.00 lb BMI (Body Mass Index) 39.7 kg/m2 Results Description No Information Available Procedures Description No Information Available Medical Devices Description No Information Available Encounters Type Date Location Provider Dx Diagnosis Office Visit 08/14/2019 Main Office Blanca Epstein M.D. F41.1 Generalized anxiety 11:30a disorder I11.9 Hypertensive heart disease without heart [...] Blanca Epstein F41.1 Generalized anxiety M.D. disorder Office Visit 03/20/2019 3:30p Main Office Blanca Epstein F41.1 Generalized anxiety M.D. disorder O21.0 Mild hyperemesis gravidarum Assessments Date Code Description Provider 08/14/2019 F41.1 Generalized anxiety disorder Blanca Epstein [...] F41.1 Generalized anxiety disorder Blanca Epstein M.D. 03/20/2019 F41.1 Generalized anxiety disorder Blanca Epstein M.D. 03/20/2019 O21.0 Mild hyperemesis gravidarum Blanca Epstein M.D. Plan of Treatment Future Appointment(s):09/13/2019 10:45 am - Blanca Epstein M.D. at Main [id number] - Blanca Epstein M.D.F41.1 Generalized anxiety disorderComments:discussed using alprazolam when needed during to control anxiety, drug test deferred bzazhR93.9 Hypertensive heart disease without heart failureNew Medication:Work Note - The above is excused from work as of this date Comments:off work until cleared by OB Functional Status Description No Information Available Mental Status Description No Information Available Referrals Description No Information Available
--- OUTSIDE RECORDS SUMMARY | 2019-10-22 11:59 | XMS REPORT | Continuity of Care Document ---
:1985 External Reference #:[id number] Author Name Blanca Epstein M.D. (transmitted by agent of provider Jeane Pierre) Address [address] [place] [address] Care Team Providers Name Role Phone Blanca Epstein MD - Internal Medicine Care Team Information Assistant Golf Course Superintendent [phone] Problems Description No Information Available Social History Type Date Description Comments Sex Unknown Tobacco Use Start: Unknown Patient is a current smoker, smokes every day Tobacco Use Start: Unknown Light tobacco smoker (10 or fewer cigarettes/day) Allergies, Adverse Reactions, Alerts Active Allergies Reaction Severity Comments Date Cefaclor 05/04/2018 Medications Active Medications SIG Qnty Indications Ordering Provider Date Venlafaxine HCL 1 by mouth two 90tabs Blanca Epstein M.D. 09/13/2019 100mg times a [...] Available Vital Signs Date Vital Result Comment 09/27/2019 11:22am BP Systolic 156 mmHg BP Diastolic 100 mmHg Heart Rate 99 /min Height 63 inches 5'3" Weight 219.00 lb BMI (Body Mass Index) 38.8 kg/m2 09/13/2019 10:50am BP Systolic 180 mmHg BP Diastolic 110 mmHg Heart Rate 87 /min Height 63 inches 5'3" Weight 221.00 lb BMI (Body Mass Index) 39.1 kg/m2 Results Description No Information Available Procedures [...] Office Visit 04/25/2019 3:15p Main Office Blanca Epstien F41.1 Generalized anxiety M.D. disorder Assessments Date Code Description Provider 09/27/2019 F53.0 depression Blanca Epstein M.D. 09/13/2019 [...] Blanca Epstein M.D. Plan of Treatment Future Appointment(s):10/12/2019 10:00 am - Blanca Epstein M.D. at Main Office Functional Status Description No Information Available Mental Status Description No Information Available Referrals Description No Information Available
--- OUTSIDE RECORDS SUMMARY | 2019-10-22 11:59 | XMS REPORT | Continuity of Care Document ---
:1985 External Reference #:[id number] Author Name Blanca Epstein M.D. (transmitted by agent of provider Hannah Ackerman) Address [address] [place] [address] Care Team Providers Name Role Phone Blanca Epstein MD - Internal Medicine Care Team Information Wood Cutter Problems Description No Information Available Social History [...] Epstein, 08/14/2019 - 250mg today, 1 by Ashley.Gladys 09/13/2019 Tablets mouth day 2 thru 5 [...] Dx Diagnosis Office Visit 09/27/2019 Main Office lBanca Epstein M.D. F53.0 depression 11:00a Office Visit [...] Hypertensive heart disease without heart failure Blanca Epsteni M.D. 07/12/2019 F41.1 Generalized anxiety disorder Blanca Epstein M.D. 06/01/2019 F41.1 Generalized anxiety disorder Blanca Epstein M.D. 06/01/2019 I11.9 Hypertensive heart disease without heart failure Blanca Epstein M.D. 04/25/2019 F41.1 Generalized anxiety disorder Blanca Epstein M.D. Plan of Treatment No Information Available Functional Status Description No Information Available Mental Status Description No Information Available Referrals Description No Information Available
--- OUTSIDE RECORDS SUMMARY | 2019-10-22 11:59 | XMS REPORT | Continuity of Care Document ---
:1985 External Reference #:[id number] Author Name Blanca Epstein M.D. (transmitted by agent of provider Jeane Pierre) Address [address] [place] [address] Care Team Providers Name Role Phone Blanca Epstein MD - Internal Medicine Care Team Information Supervisor Polishing [phone] Problems Description No Information Available Social History [...] Epstein, 08/14/2019 - 250mg today, 1 by M.D. 09/13/2019 Tablets mouth day 2 thru 5 Carafate take my mouth 4 420ml Blanca Epstein, 03/20/2019 - 1GM/10ML times daily. M.D. 04/25/2019 Suspension Carafate take 15 ml by [...] hyperemesis gravidarum Assessments Date Code Description Provider 09/13/2019 F41.1 [...] am - Blanca Epstein M.D. at Main [id number] - Blanca Epstein M.D.F41.1 Generalized anxiety disorderComments:discussed using alprazolam when needed during to control anxiety, drug test deferred [id number] Hypertensive heart disease without heart failureNew Medication:Work Note - The above is excused from work as of this date Comments:off work until cleared by OB Functional Status Description No Information Available Mental Status Description No Information Available Referrals Description No Information Available
--- OUTSIDE RECORDS SUMMARY | 2019-10-22 11:59 | XMS REPORT | Continuity of Care Document ---
:1985 External Reference #:[id number] Author Name Blanca Epstein M.D. (transmitted by agent of provider Jeane Pierre) Address [address] [place] [address] Care Team Providers Name Role Phone Blanca Epstein MD - Internal Medicine Care Team Information Cargo Checker [phone] Problems Description No Information Available Social History [...]
[2019-10-22 13:34] VITALS: BP 134/87
--- NOTE | 2019-10-22 13:44 | UC ---
Ear Complaint HPI - HPI Summary HPI Summary: 34-year-old female presents with complaints of left ear pain. States last week she developed some upper respiratory symptoms including mild nasal congestion, left ear pain, and sore throat. States her other symptoms have resolved but the ear pain has persisted. Describes pain as sharp. Has taken ibuprofen with little relief in symptoms. Denies fever, chills, nasal congestion, ear drainage , sore throat, or cough. - History of Current Complaint Chief Complaint: UCEar Stated Complaint: EAR PAIN Time Seen by Provider: 10/22/19 13:27 Hx Obtained From: Patient Hx Last Menstrual Period: 10/18/17 Pain Intensity: 4 - Allergies/Home Medications Allergies/Adverse Reactions: Allergies Allergy/AdvReac Type Severity Reaction Status Date / Time cefaclor [From [facility]] Allergy Unknown Hives Verified 10/22/19 13:28 Home Medications: Home Medications Propranolol 20 mg TAB [Inderal 20 mg TAB] 20 mg PO BID tab 06/15/19 [Rx Confirmed 10/22/19] Norgestimate-Ethinyl Estradiol [Ortho Tri-Cyclen 28 Tablet] 1 tab DAILY [History Confirmed 10/22/19] Venlafaxine TAB (NF) [Effexor TAB (NF)] 100 mg PO BID 10/22/19 [History Confirmed 10/22/19] PMH/Surg Hx/FS Hx/Imm Hx Cardiovascular History: Other - Tachycardia Psychological History: Depression - Surgical History Surgical History: Yes Surgery Procedure, Year, and Place: breast reduction 2007. JUN 2019 - Family History Known Family History: Positive: Diabetes - Social History Occupation: Employed Full-time Lives: With Family Alcohol Use: Rare Substance Use Type: None Smoking Status (MU): Former Smoker Type: Cigarettes Amount Used/How Often: 1 PPD Have You Smoked in the Last Year: Yes - quit with Household Exposure Type: Cigarettes - Immunization History Most Recent Influenza Vaccination: 05/2019 Most Recent Pneumonia Vaccination: never Review of Systems All Other Systems Reviewed And Are Negative: Yes Constitutional: Negative: Fever, Chills Skin: Negative: Rash Eyes: Negative: Drainage, Eye Redness ENT: Positive: Ear Ache. Negative: Sore Throat, Nasal Discharge, Sinus Congestion, Sinus Pain/Tenderness Respiratory: Negative: Shortness Of Breath, Cough Cardiovascular: Negative: Chest Pain Gastrointestinal: Negative: Abdominal Pain, Vomiting, Diarrhea, Nausea Genitourinary: Positive: Negative Musculoskeletal: Positive: Negative Neurological/Mental Status: Positive: Negative Is Patient Immunocompromised?: No Physical Exam - Summary Physical Exam Summary: GENERAL APPEARANCE: Well developed, well nourished, alert and cooperative, and appears to be in no acute distress. EYES: Conjunctiva clear. No drainage. EARS: Right external auditory canals and tympanic membranes clear, left external auditory canal clear, opaque TM with small effusion and air bubbles, hearing grossly intact. NOSE: No nasal discharge. THROAT: Pharynx normal No tonsilar inflammation, swelling, exudate, or lesions. Uvula midline. NECK: Neck supple, non-tender without lymphadenopathy. CARDIAC: Normal S1 and S2. No S3, S4 or murmurs. Rhythm is regular. There is no peripheral edema, cyanosis or pallor. Extremities are warm and well perfused. Capillary refill is less than 2 seconds. Peripheral pulses intact. LUNGS: Clear to auscultation without rales, rhonchi, wheezing or diminished breath sounds. ABDOMEN: Positive bowel sounds. Soft, nondistended, nontender. No guarding or rebound. No masses or hepatosplenomegally. MUSKULOSKELETAL: ROM intact to all extremities. No joint erythema or tenderness. Normal muscular development. Normal gait. SKIN: Skin normal color, texture and turgor with no lesions or eruptions. Triage Information Reviewed: Yes Vital Signs: Initial Vital Signs Temp 97 F 10/22/19 13:30 Pulse 60 10/22/19 13:30 Resp 16 10/22/19 13:30 BP 134/87 10/22/19 13:30 Pulse Ox 100 10/22/19 13:30 Vital Signs Reviewed: Yes Ear Complaint Course/Dx - Course Course Of Treatment: 34-year-old female presents with complaints of left ear pain. States last week she developed some upper respiratory symptoms including mild nasal congestion, left ear pain, and sore throat. States her other symptoms have resolved but the ear pain has persisted. Describes pain as sharp. Has taken ibuprofen with little relief in symptoms. Denies fever, chills, nasal congestion, ear drainage , sore throat, or cough. Afebrile. Vital signs stable. Patient had no nasal congestion, the right external auditory canal and tympanic membrane as clear, the left external auditory canal clear, opaque TM with small effusion and air bubbles, hearing grossly intact, normal pharynx, no cervical lymphadenopathy, clear bilateral breath sounds, and otherwise unremarkable exam. Recommending that we start her on fluticasone nasal spray for a serous otitis as well as continued use [id number] analgesics for pain. She is to follow-up with her primary care provider in 5-7 days if symptoms are not improving. Anticipatory guidance and warning symptoms were reviewed with the patient. Verbalizes understanding and agrees with plan of care. - Differential Dx/Diagnosis Differential Diagnosis/HQI/PQRI: Cerumen Impaction, Otitis Externa, Otitis Media , URI Provider Diagnosis: Acute serous otitis media, left ear Discharge ED - Sign-Out/Discharge Documenting (check all that apply): Patient Departure All imaging exams completed and their final reports reviewed: No Studies - Discharge Plan Condition: Stable Disposition: HOME Patient Education Materials: Serous Otitis Media (ED) Referrals: Blanca Epstein MD [Primary Care Provider] - 5 Days Additional Instructions: There was no evidence of an infection in the ear at this time. I suspect that her pain is from a condition called serous otitis which is caused by eustachian tube dysfunction which is common after an upper respiratory infection. Start fluticasone nasal spray 2 sprays each nostril once daily for 2 weeks. Continue to take acetaminophen (Tylenol) or ibuprofen (Advil, Motrin) according to directions as needed for pain. Follow-up with your primary care provider in 5-7 days if symptoms are not improving. Seek immediate medical attention if you develop a fever greater than 100.5 F, have drainage or blood from the ear, loss of hearing, or any worsening of symptoms. - Billing Disposition and Condition Condition: STABLE Disposition: Home
== END 2019-10-22 14:03 | disposition home or self-care (01) ==
LOC: UCCORT 11:52
DX: H65.02 Acute serous otitis media, left ear (principal); F32.9 Major depressive disorder, single episode, unspecified; Z87.891 Personal history of nicotine dependence; Z79.899 Other long term (current) drug therapy; Z88.1 Allergy status to other antibiotic agents
CPT/HCPCS: 99211; G0463

== ENCOUNTER 2021-03-26 15:37 | Inpatient (IN) ==
[2021-03-26] MEDS ORDERED: Lactated Ringers 1000 ml BAG 1,000 ML IV ONE (17:21)
[2021-03-26] MEDS ORDERED: Buffered Lidocaine 1% SYRIN 1 ml INTRADERM ONE (17:21)
[2021-03-26] MEDS ORDERED: Sodium Citrate/Citric Acid LIQ 15 ML UDC PO ONE ×2 (17:21→19:12)
[2021-03-26] MEDS ORDERED: Lactated Ringers 1000 ml BAG 1,000 ML IV SCH ×3 (18:00→21:00)
[2021-03-26] MEDS ORDERED: Oxytocin 10 UNITS/ML 1 ML VIAL ONE (19:06)
[2021-03-26] MEDS ORDERED: Clindamycin 900 MG/D5W BAG 900 MG/50 ML BAG IVPB ONE ×2 (19:06→19:11)
[2021-03-26] MEDS ORDERED: Bupivacaine 0.5% SDV PF 30ML VIAL ONE (19:07)
[2021-03-26] MEDS ORDERED: Morphine PF AMP (0.5MG/ML) 5 MG/10 ML AMP ONE (19:07)
[2021-03-26 19:22] LABS: Urine Appearance Clear; Urine Bilirubin Negative (Negative); Urine Blood 1+ (Negative); Urine Color Yellow; Urine Glucose Negative (Negative); Urine Ketones 1+ (Negative); Urine Nitrite Negative (Negative); Urine Protein Negative (Negative); Urine Specific Gravity 1.009 (1.002-1.030); Urine Urobilinogen Negative (Negative)
[2021-03-26 19:24] LABS: Urine Bacteria Absent (Absent); Urine Red Blood Cell Trace(0-2/hpf) (Absent); Urine Squamous Epithelial Cell Present (Absent); Urine White Blood Cell Trace(0-5/hpf) (Absent)
[2021-03-26 19:32] LABS: Urine Benzodiazepine Screen Presumptive Positive (None Detect); Urine Cannabinoids Screen None Detected (None Detect); Urine Opiates Screen None Detected (None Detect)
[2021-03-26] MEDS ORDERED: ceFOXitin 2 GM IVPREMIX 2 GM/50 ML BAG ONE (19:44)
[2021-03-26] MEDS ORDERED: Phenylephrine 40 mcg/mL 10mL (400mcg) SYRINGE ONE (19:53)
[2021-03-26] MEDS ORDERED: Ondansetron 4 mg VIAL 2 MG/ML 2 ml VIAL ONE (20:04)
[2021-03-26] MEDS ORDERED: Dexamethasone IV 4 MG/ML VIAL 1 ml VIAL ONE (20:04)
[2021-03-26] MEDS ORDERED: Naloxone 0.4 mg VIAL 0.4 mg/ml 1 ml VIAL IV PRN ×2 (20:13→20:14)
[2021-03-26] MEDS ORDERED: fentaNYL 100 mcg/2 ml 50 MCG/ML VIAL IV PRN (20:13)
[2021-03-26] MEDS ORDERED: DiMENhydriNATE IV 50 mg/ml 1 ml VIAL IV PUSH PRN (20:14)
[2021-03-26] MEDS ORDERED: Ondansetron 4 mg VIAL 2 MG/ML 2 ml VIAL IV PRN (20:14)
[2021-03-26] MEDS ORDERED: HYDROcodone/ACETAMIN 5/325 mg TAB PO PRN (20:14)
[2021-03-26] MEDS ORDERED: Glycerin ADULT 2.4 gm SUPP PR PRN (20:51)
[2021-03-26] MEDS ORDERED: Witch Hazel PAD JAR TOPICAL PRN (20:51)
[2021-03-26] MEDS ORDERED: Dibucaine 1% OINT 28.35 GM TUBE PR PRN (20:51)
[2021-03-26] MEDS ORDERED: Oxytocin in LR 20 UNITS/1,000 ML BAG IVPB SCH (21:00)
[2021-03-26 21:54] LABS: Urine Appearance Clear; Urine Bilirubin Negative (Negative); Urine Blood Negative (Negative); Urine Color Yellow; Urine Glucose Negative (Negative); Urine Ketones 2+ (Negative); Urine Nitrite Negative (Negative); Urine Protein Negative (Negative); Urine Specific Gravity 1.014 (1.002-1.030); Urine Urobilinogen Negative (Negative)
[2021-03-26] MEDS: diPHENhydraMINE IV 50 MG/ML 1 ml VIAL (BENADRYL) IV PRN (22:05)
[2021-03-26] MEDS: Venlafaxine XR 75 mg PO SCH (22:35)
[2021-03-27] MEDS: diPHENhydraMINE IV 50 MG/ML 1 ml VIAL (BENADRYL) IV PRN (04:57)
[2021-03-27 08:29] LABS: ABS Lymphocytes 2.4 10^3/ul (1.0-4.8); ABS Monocytes 1.2 10^3/ul (0-0.8); ABS Neutrophils 13.4 10^3/ul (1.5-7.7); Eosinophil % 0.1 %; Hematocrit 30 % (35-47); Hemoglobin 9.5 g/dL (12.0-16.0); Mean Corpuscular HGB Conc 32 g/dL (31-36); Mean Corpuscular Hemoglobin 26 pg (27-31); Mean Corpuscular Volume 83 fL (80-97); Mean Platelet Volume 9.6 fL (7.4-10.4); Platelet Count 226 10^3/uL (150-450); Red Blood Count 3.62 10^6 /uL (3.70-4.87); Red Cell Distribution Width 14 % (10-15)
[2021-03-27] MEDS: Venlafaxine XR 75 mg PO SCH ×2 (08:52→20:14)
[2021-03-27] MEDS ORDERED: Tetan/Diph/Pertus SYR(Tdap) 0.5 ML SYR(BOOSTRIX) use SYR contains LATEX IM ONE (09:00)
[2021-03-27] MEDS ORDERED: Venlafaxine 25 mg TAB (NF) PO SCH (09:00)
[2021-03-28] MEDS: Venlafaxine XR 75 mg PO SCH ×2 (08:47→21:08)
[2021-03-29 07:27] VITALS: BP 131/65
== END 2021-03-29 13:00 | disposition home or self-care (01) | DRG 540 ==
LOC: MCHOBOUT 15:37 → MCHOB 17:20
PROVIDERS: ADMIT Obstetrics & Gynecology; ATTEND Obstetrics & Gynecology